=== PATIENT | female | born 1975 | race Caucasian/White ===

== ENCOUNTER → 2016-11-24 | Outpatient (CLI) | payer BC, MEDICARE ==
[~2016-11-24] MED LIST: ASPIR-LOW81 MG PO; CATAPRES 0.1MG0.1 MG PO; COREG 12.5MG12.5 MG PO; COZAAR100 MG PO; DILTIAZEM 24HR360 MG PO; HUMALOG100 UNIT/3 SQ; HYDRALAZINE HC100 MG PO; LEVEMIR IN100 UNITS/ SQ; LISINOPRIL20 MG PO; LISINOPRIL40 MG PO; LOPRESSOR 50 MG50 MG PO; PROCARDIA XL90 MG PO; RENVELA800 MG PO; VITAMIN D 11000 UNIT PO; ZESTRIL40 MG PO; ZOFRAN4 MG PO
== END ==
LOC: CT 12:59 → NM 13:00 → CT 11-27 15:00
DX: R59.0 Localized enlarged lymph nodes (principal); N18.6 End stage renal disease; Z87.19 Personal history of other diseases of the digestive system; Z88.8 Allergy status to other drugs, medicaments and biological substances
CPT/HCPCS: 36415; 80076; 82150; 82565; 83690; 84520

== ENCOUNTER → 2016-11-27 | Outpatient (CLI) | payer BC, MEDICARE | LOC: CT 15:00 | DX: N18.6 End stage renal disease (principal); R59.0 Localized enlarged lymph nodes; Z87.19 Personal history of other diseases of the digestive system ==

== ENCOUNTER → 2016-12-01 | Outpatient (CLI) | payer BC, MEDICARE | LOC: NM 07:36 | DX: N18.6 End stage renal disease (principal); R59.0 Localized enlarged lymph nodes; Z87.19 Personal history of other diseases of the digestive system | CPT/HCPCS: 78227; A9537; J2805 ==

== ENCOUNTER 2017-01-22 16:46 | Emergency (ER) | payer BC, MEDICARE ==
[2017-01-22 19:51] LABS: RED BLOOD COUNT 2.23 M/UL (4.00-5.10); WHITE BLOOD COUNT 14.8 K/UL (4.5-11.0)
[2017-01-22 19:54] LABS: HEMOGLOBIN 6.9 gm/dl (12.3-15.3)
== END 2017-01-23 01:30 ==
LOC: ER1 16:46
PROVIDERS: Physician Assistant
DX: L02.413 Cutaneous abscess of right upper limb (principal); B34.9 Viral infection, unspecified; D64.9 Anemia, unspecified; E11.22 Type 2 diabetes mellitus with diabetic chronic kidney disease; I12.0 Hypertensive chronic kidney disease with stage 5 chronic kidney disease or end stage renal disease; N18.6 End stage renal disease; E78.5 Hyperlipidemia, unspecified; Z88.8 Allergy status to other drugs, medicaments and biological substances
CPT/HCPCS: 36415; 36430; 73060; 73080; 80053; 80202; 83605; 85025; 86140; 86850; 86900; 86901; 86920; 87040; 87070; 87077; 87205; 96374; 96375; 99283; J1815; J2270; J2405; J2543; J3370; J7050; J7070; P9016

== ENCOUNTER → 2017-02-19 | Outpatient (CLI) | payer BC, MEDICARE ==
[2017-02-19 10:52] LABS: HEMOGLOBIN 9.6 gm/dl (12.3-15.3); RED BLOOD COUNT 3.01 M/UL (4.00-5.10); WHITE BLOOD COUNT 8.2 K/UL (4.5-11.0)
== END ==
LOC: CT 09:59
PROVIDERS: Internal Medicine Hematology & Oncology
DX: D51.8 Other vitamin B12 deficiency anemias (principal)
CPT/HCPCS: 36415; 80053; 83615; 85025

== ENCOUNTER 2021-01-24 12:44 | Emergency (ER) | payer MEDICARE, OTHER ==
[~2021-01-24 12:44] MED LIST changes: +CARVEDILOL25 MG PO; +CATAPRES0.3 MG PO; +CLOPIDOGREL75 MG PO; +CORAL CALCIUM1 GM PO; +CRESTOR 10 MG T10 MG PO; +ISORDIL TAB 3030 MG PO; +KEFLEX500 MG PO; +LEVAQUIN750 MG PO; +LEVEMIR100 UNIT/1 SQ; +LEVOTHYROXINE50 MCG PO; +PANTOPRAZOLE SO40 MG PO; +PHENERGAN 25 MG25 M1 PO; +SYNTHROID112 MCG PO; +ZOFRAN ODT 4 MG4 MG PO
[2021-01-24 15:55] LABS: HEMOGLOBIN 14.6 gm/dl (12.3-15.3); RED BLOOD COUNT 4.68 M/UL (4.00-5.10); WHITE BLOOD COUNT 9.3 K/UL (4.5-11.0)
[2021-01-24] MEDS ORDERED: ZOFRAN ODT 4 MG4 MG SL (18:32)
== END 2021-01-24 18:41 | disposition home or self-care (01) ==
LOC: ER1 12:44
PROVIDERS: Emergency Medicine
DX: R11.2 Nausea with vomiting, unspecified (principal); R09.89 Other specified symptoms and signs involving the circulatory and respiratory systems; R10.9 Unspecified abdominal pain; E78.5 Hyperlipidemia, unspecified; I12.9 Hypertensive chronic kidney disease with stage 1 through stage 4 chronic kidney disease, or unspecified chronic kidney disease; N18.9 Chronic kidney disease, unspecified; E11.22 Type 2 diabetes mellitus with diabetic chronic kidney disease; Z99.2 Dependence on renal dialysis; Z88.8 Allergy status to other drugs, medicaments and biological substances; Z20.822 Contact with and (suspected) exposure to COVID-19
CPT/HCPCS: 0240U; 80053; 83690; 84703; 85025; 96374; 99284; J2405; J7030